=== PATIENT | female | born 1945 | race Caucasian/White ===

== ENCOUNTER → 2020-01-09 | Outpatient (CLI) | payer SELFPAY ==
[~2020-01-09] MED LIST: ACYC1CAP20 PO; ALLO100T PO; ASPI81TA85 PO; ATEN25TA PO; ATOR40TA75 PO; B-12100020 PO; CINA30TA5 PO; LIDO2.5C15 TOP; MAGN400T2 PO; MONT10TA4 PO; ONDA8TAB10 PO; QUIN1TAB4 PO; TORS20TA2 PO; TOUJ1.2I SC; VITA500079 PO; XALA0.007 OS
== END ==
LOC: CANPRECLI → M INFU 08:53
PROVIDERS: ATTEND Internal Medicine Hematology & Oncology
DX: Z53.8 Procedure and treatment not carried out for other reasons (principal)

== ENCOUNTER → 2023-04-26 | Outpatient (CLI) | payer SELFPAY ==
[~2023-04-26] MED LIST changes: +ASPI81CH33 PO; -ASPI81TA85 PO; +ASPI81TA86 PO; +COLA100C5 PO; -LIDO2.5C15 TOP; +LIDO30CR18 TOP; -MONT10TA4 PO; +MONT10TA97 PO; +ONDA-84 PO; -ONDA8TAB10 PO
== END ==
LOC: M RAD 13:00
DX: Z53.9 Procedure and treatment not carried out, unspecified reason (principal)

== ENCOUNTER → 2025-07-23 | Outpatient (CLI) | payer SELFPAY ==
[2025-01-17 08:34] LABS: CK-MB VALUE MASS 1.3 NG/ML (<3.6)
[2025-01-17 09:07] LABS: CPK CREATINE PHOSPHOKINASE 109.0 U/L (34-145); MB/CK RELATIVE INDEX 1.19 (< OR =4)
[2025-01-17 11:20] LABS: CK-MB VALUE MASS < 1.0 NG/ML (<3.6); CPK CREATINE PHOSPHOKINASE 138 U/L (34-145); MB/CK RELATIVE INDEX 0.72 (< OR =4)
[~2025-07-23] MED LIST changes: +ACET-1515 PO; +LEXA1TAB PO
== END ==
LOC: EEVIPCON 06-14 11:31 → M RAD 06-14 11:31 → M OPP 13:26
DX: Z13.6 Encounter for screening for cardiovascular disorders (principal)